=== PATIENT | female | born 1945 | race Caucasian/White ===

== ENCOUNTER 2017-11-30 09:15 | Emergency (ER) | payer OTHER ==
[~2017-11-30] VITALS: Ht 152.4 cm; Wt 72.6 kg
[2017-11-30] MEDS ORDERED: HYDROCODONE/APAP 5MG-325MG TAB PO ONE (10:00)
--- NOTE | 2017-11-30 10:52 | Diagnostic Imaging Report ---
Exam: Right hip 2 views History: Pain, fall Comparison: None. Findings: No acute fracture. 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 Hardware intact. Partially visualized fixation of the left proximal femur. Impression: No acute osseous abnormality Signed by: Dr. Jatin Salazar M.D. on 11/30/2017 10:49 AM
--- NOTE | 2017-11-30 10:52 | Diagnostic Imaging Report ---
Exam: Right knee 3 views History: Pain Comparison: None. Findings: No fracture or malalignment. Bone demineralization. Degenerative arthrosis. No abnormal soft tissue calcification or soft tissue defect. Impression: No acute osseous abnormality. Degenerative arthrosis. Signed by: Dr. Jatin Salazar M.D. on 11/30/2017 10:47 AM
--- NOTE | 2017-11-30 12:47 | Diagnostic Imaging Report ---
TECHNIQUE: Computed tomography imaging of the RIGHT HIP was performed WITHOUT injected contrast. HISTORY: Right hip pain COMPARISON: None available. FINDINGS: No acute fracture. Right hip hemiarthroplasty with intact hardware. No loosening. Being hardening artifact. Soft tissues are unremarkable. No fluid collections or masses. IMPRESSION: No acute fracture. Intact right hip hemiarthroplasty. Signed by: Dr. Jatin Salazar M.D. on 11/30/2017 12:43 PM
== END 2017-11-30 13:13 | disposition home or self-care (01) ==
LOC: ER 09:15
DX: M25.551 Pain in right hip (principal); M25.561 Pain in right knee; R26.2 Difficulty in walking, not elsewhere classified; W01.0XXA Fall on same level from slipping, tripping and stumbling without subsequent striking against object, initial encounter; Y92.008 Other place in unspecified non-institutional (private) residence as the place of occurrence of the external cause
CPT/HCPCS: 99284